=== PATIENT | female | born 1950 | race Hispanic/Latino ===

== ENCOUNTER 2018-01-11 07:35 | Day surgery (SDC) | payer OTHER ==
[~2018-01-11] VITALS: Ht 165.1 cm; Wt 122.0 kg
[~2018-01-11 07:35] MED LIST: SODIUM CHLORIDE 0.9% 1000ML 1,000 ML IV ONE
[2018-01-11 07:57] VITALS: BP 166/63
[2018-01-11] MEDS ORDERED: AMLO10TA2 PO (08:50)
[2018-01-11] MEDS ORDERED: SPIR25TA6 PO (08:50)
[2018-01-11] MEDS ORDERED: PROPOFOL 10 MG/ML 20ML VIAL IV ONE (09:22)
[2018-01-11 09:42] VITALS: BP 121/64
== END 2018-01-11 10:09 | disposition home or self-care (01) ==
LOC: ENDO 07:35 → DAH 07:35 → ENDO 10:09
PROVIDERS: ATTEND Internal Medicine Gastroenterology
DX: Z12.11 Encounter for screening for malignant neoplasm of colon (principal); D12.3 Benign neoplasm of transverse colon; K21.9 Gastro-esophageal reflux disease without esophagitis; I10 Essential (primary) hypertension; Z79.899 Other long term (current) drug therapy; Z90.49 Acquired absence of other specified parts of digestive tract; Z90.710 Acquired absence of both cervix and uterus; Z68.43 Body mass index [BMI] 50.0-59.9, adult
CPT/HCPCS: 45380; 88305; 93005; A4606; J2704; J7030

== ENCOUNTER → 2018-07-27 | Outpatient (CLI) | payer SELFPAY ==
[~2018-07-27] MED LIST changes: +AMLO10TA6 PO; -SODIUM CHLORIDE 0.9% 1000ML 1,000 ML IV ONE; +SPIR25TA6 PO
== END | disposition home or self-care (01) ==
LOC: OIH 12:42
PROVIDERS: ATTEND Internal Medicine Cardiovascular Disease
DX: Z13.6 Encounter for screening for cardiovascular disorders (principal)
CPT/HCPCS: 75571

== ENCOUNTER → 2018-08-15 | Outpatient (CLI) | payer OTHER | END | disposition home or self-care (01) | LOC: SHCH 14:45 | PROVIDERS: ATTEND Internal Medicine Cardiovascular Disease | DX: I35.8 Other nonrheumatic aortic valve disorders (principal); I10 Essential (primary) hypertension; E66.9 Obesity, unspecified | CPT/HCPCS: 93306 ==

== ENCOUNTER 2019-08-02 23:37 | Emergency (ER) | payer OTHER ==
[~2019-08-02 23:37] MED LIST changes: -AMLO10TA6 PO; +AMLO10TA7 PO
[2019-08-02] MEDS ORDERED: ONDANSETRON HCL 4 MG/2 ML VIAL ONE (23:56)
[2019-08-02] MEDS ORDERED: MORPHINE SULFATE 4 MG/1ML SYG ONE (23:57)
[2019-08-02] MEDS ORDERED: SODIUM CHLORIDE 0.9% 1000ML 1,000 ML IV ONE (23:57)
[2019-08-03 00:02] LABS: BASOPHILS % (AUTO) 0.1 % (0.0-5.0); EOSINOPHILS % (AUTO) 0.6 % (0.0-8.0); HEMATOCRIT 39.5 % (36-48); LYMPHOCYTES % (AUTO) 4.5 % (21.0-51.0); MEAN CORPUSCULAR HEMOGLOBIN 31.5 pg (27.0-33.0); MEAN CORPUSCULAR HGB CONC 34.4 g/dL (32.0-36.0); MEAN CORPUSCULAR VOLUME 91.6 fL (79-99); MONOCYTES % (AUTO) 4.9 % (3.0-13.0); NEUTROPHILS % (AUTO) 89.9 % (40.0-77.0); PLATELET COUNT (AUTO) 141 K/uL (130-400); RED BLOOD CELL COUNT(AUTO) 4.31 MIL/uL (4.00-5.50); RED CELL DISTRIBUTION WIDTH 13.2 % (11.0-15.5); WHITE BLOOD COUNT (AUTO) 12.5 K/uL (4.8-10.8)
[2019-08-03 00:11] LABS: CREATININE 0.8 mg/dL (0.5-1.5); POTASSIUM 3.9 mmol/L (3.5-5.1)
[2019-08-03 00:21] LABS: ALBUMIN 3.6 g/dL (3.5-5.0); BILIRUBIN,TOTAL 0.8 mg/dL (0.2-1.0)
[2019-08-03 00:56] LABS: APPEARANCE,URINE Clear (CLEAR); BILIRUBIN,URINE Negative (NEGATIVE); COLOR,URINE Yellow (YELLOW); GLUCOSE, URINE (UA) Negative (NEGATIVE); KETONES,URINE Negative (NEGATIVE); LEUKOCYTE ESTERASE ,URINE Negative (NEGATIVE); NITRATE,URINE Negative (NEGATIVE); OCCULT BLOOD,URINE Negative (NEGATIVE); PH,URINE 6.5 (5.0-8.0); PROTEIN,URINE Negative (NEGATIVE)
== END 2019-08-03 01:38 | disposition home or self-care (01) ==
LOC: EDH 23:37
DX: K59.00 Constipation, unspecified (principal); R11.2 Nausea with vomiting, unspecified; I10 Essential (primary) hypertension; E07.9 Disorder of thyroid, unspecified
CPT/HCPCS: 36415; 74176; 80053; 81003; 83690; 85025; 96361; 96374; 96375; 99285; J2270; J2405; J7030

== ENCOUNTER → 2021-11-13 | Outpatient (CLI) | payer OTHER ==
[~2021-11-13] MED LIST changes: +AMLO-258 PO; -AMLO10TA7 PO
== END | disposition home or self-care (01) ==
LOC: RAH 09:15
PROVIDERS: ATTEND Internal Medicine Gastroenterology
DX: R10.13 Epigastric pain (principal); I70.8 Atherosclerosis of other arteries; Z90.49 Acquired absence of other specified parts of digestive tract
CPT/HCPCS: 76700

== ENCOUNTER 2023-11-10 16:41 | Emergency (ER) | payer OTHER ==
[~2023-11-10] VITALS: Ht 160 cm; Wt 122.5 kg
[2023-11-10 16:56] VITALS: BP 180/76; PULSE 73; RESP 18; O2SAT 98
[2023-11-10 17:25] LABS: BASOPHILS # (AUTO) 0.04 K/uL (0.00-0.20); BASOPHILS % (AUTO) 0.6 % (0.0-5.0); EOSINOPHILS % (AUTO) 1.6 % (0.0-8.0); HEMATOCRIT 40.1 % (36-48); IMMATURE GRANULOCYTE ABSOLUTE 0.01 K/uL (0-1); LYMPHOCYTES # (AUTO) 1.9 K/uL (1.0-4.8); LYMPHOCYTES % (AUTO) 28.9 % (21.0-51.0); MEAN CORPUSCULAR HEMOGLOBIN 30.8 pg (27.0-33.0); MEAN CORPUSCULAR HGB CONC 33.7 g/dL (32.0-36.0); MEAN CORPUSCULAR VOLUME 91.6 fL (79-99); MONOCYTES # (AUTO) 0.5 K/uL (0.1-1.0); MONOCYTES % (AUTO) 7.3 % (3.0-13.0); NEUTROPHILS # (AUTO) 3.9 K/uL (1.8-7.7); NEUTROPHILS % (AUTO) 61.4 % (40.0-77.0); PLATELET COUNT (AUTO) 134 K/uL (130-400); RED BLOOD CELL COUNT(AUTO) 4.38 MIL/uL (4.00-5.50); RED CELL DISTRIBUTION WIDTH 12.9 % (11.0-15.5); WHITE BLOOD COUNT (AUTO) 6.4 K/uL (4.8-10.8)
[2023-11-10 17:33] LABS: CREATININE 0.8 mg/dL (0.5-1.5); POTASSIUM 3.7 mmol/L (3.5-5.1)
[2023-11-10 17:37] LABS: ALBUMIN 3.8 g/dL (3.5-5.0); BILIRUBIN,TOTAL 0.7 mg/dL (0.2-1.0); TOTAL PROTEIN, SERUM 8.1 g/dL (6.0-8.3)
[2023-11-10 17:48] LABS: APPEARANCE,URINE CLEAR (CLEAR); BILIRUBIN,URINE NEGATIVE (NEGATIVE); COLOR,URINE COLORLESS (YELLOW); GLUCOSE, URINE (UA) NEGATIVE (NEGATIVE); KETONES,URINE NEGATIVE (NEGATIVE); LEUKOCYTE ESTERASE ,URINE NEGATIVE Leu/uL (NEGATIVE); NITRATE,URINE NEGATIVE (NEGATIVE); OCCULT BLOOD,URINE NEGATIVE (NEGATIVE); PH,URINE 6.5 (5.0-8.0); PROTEIN,URINE NEGATIVE (NEGATIVE); UROBILINOGEN,URINE 0.2 mg/dL (0.2-1.0)
[2023-11-10 17:49] LABS: ADD UA MICROSCOPIC YES
[2023-11-10 17:50] LABS: BACTERIA,URINE RARE /HPF (None Seen); MUCUS,URINE RARE LPF (None Seen); RBC,URINE 0-1 /HPF (0-1); SQUAMOUS EPITHELIAL CELL,UR RARE /HPF (0-2); WBC,URINE 0-1 /HPF (0-1)
[2023-11-10] MEDS ORDERED: L AC460C PO (18:46)
[2023-11-10] MEDS: METOCLOPRAMIDE 5 MG TABLET PO SCH (19:33)
[2023-11-10] MEDS: MAG/ALUM/SIMETH 30 ML UDCUP PO ONE (19:33)
== END 2023-11-10 19:35 | disposition home or self-care (01) ==
LOC: EDH 16:41
DX: R14.0 Abdominal distension (gaseous) (principal); I10 Essential (primary) hypertension; E03.9 Hypothyroidism, unspecified; Z90.49 Acquired absence of other specified parts of digestive tract
CPT/HCPCS: 36415; 80053; 81001; 85025

== ENCOUNTER → 2023-11-15 | Outpatient (CLI) | payer OTHER ==
[~2023-11-15] MED LIST changes: +IOHEXOL-350 75 ML VIAL IV ONE; +L AC460C PO
== END | disposition home or self-care (01) ==
LOC: RAH 10:17
PROVIDERS: ATTEND Internal Medicine Gastroenterology
DX: R10.32 Left lower quadrant pain (principal); Z90.710 Acquired absence of both cervix and uterus
CPT/HCPCS: 74178; Q9967

== ENCOUNTER → 2024-05-22 | Outpatient (CLI) | payer OTHER ==
[~2024-05-22] MED LIST changes: -IOHEXOL-350 75 ML VIAL IV ONE
== END | disposition home or self-care (01) ==
LOC: RAH 13:06
PROVIDERS: ATTEND Internal Medicine Cardiovascular Disease
DX: Z13.6 Encounter for screening for cardiovascular disorders (principal)
CPT/HCPCS: 75571

== ENCOUNTER → 2024-06-20 | Outpatient (CLI) | payer OTHER | END | disposition home or self-care (01) | LOC: SHCH 13:32 | PROVIDERS: ATTEND Internal Medicine Cardiovascular Disease | DX: I10 Essential (primary) hypertension (principal) | CPT/HCPCS: 93306 ==

== ENCOUNTER → 2024-07-10 | Outpatient (CLI) | payer OTHER ==
[2024-07-10] MEDS: REGADENOSON 0.4 MG/5 ML PF SYG IVP ONE (14:56)
== END | disposition home or self-care (01) ==
LOC: SHCH 08:34
PROVIDERS: ATTEND Internal Medicine Cardiovascular Disease
DX: I25.10 Atherosclerotic heart disease of native coronary artery without angina pectoris (principal); R07.9 Chest pain, unspecified
CPT/HCPCS: 78452; 93017; J2785; A9500 ×2

== ENCOUNTER → 2025-04-09 | Outpatient (CLI) | payer OTHER ==
[~2025-04-09] MED LIST changes: +IOHEXOL 350 MG/ML 100ML INFUS..BTL IV ONE
== END | disposition home or self-care (01) ==
LOC: RAH 07:25
PROVIDERS: ATTEND Internal Medicine Cardiovascular Disease
DX: R07.9 Chest pain, unspecified (principal)
CPT/HCPCS: 75574; Q9967